=== PATIENT | female | born 1940 | race Caucasian/White ===

== ENCOUNTER → 2021-11-06 | Outpatient (CLI) | payer MEDICARE ==
[~2021-11-06] MED LIST: BACLOFEN10 MG PO; DIPHENHYDRAMINE25 M2 PO; FENOFIBRATE145 MG PO; GEMFIBROZIL600 MG PO; MAGNESIUM OXID400 MG PO; NAPROXEN250 MG PO; NEXIUM40 MG PO
== END ==
LOC: DX 11:46
PROVIDERS: ATTEND Family Medicine
DX: R25.2 Cramp and spasm (principal)